=== PATIENT | female | born 1965 | race Caucasian/White ===

== ENCOUNTER 2017-06-20 11:43 | Inpatient (IN) | payer OTHER ==
[~2017-06-20] VITALS: Ht 167.6 cm; Wt 97.1 kg
[2017-06-20 11:46] VITALS: BP 152/59; PULSE 79; RESP 12; TEMP 99.1; O2SAT 99
[2017-06-20 12:01] VITALS: BP 142/76; PULSE 77; RESP 18; TEMP 98.2; O2SAT 95
--- NOTE | 2017-06-20 12:17 | PD ---
HPI Chief Complaint: Fall Time Seen by Provider: 12:01 Travel History International Travel<30 days: No Contact w/Intl Traveler<30days: No Traveled to known affect area: No History of Present Illness HPI 52-year-old female came to the emergency room after she tripped on uneven concrete surface and fell. She landed on her right knee and her left hand. Her drove her to the emergency room. She was unable to stand up but could bear weight on her right leg. She was unable to walk because of severe pain on the knee area. Patient denies hitting her head or losing consciousness. Vital signs are stable. She is not on any blood thinners. The knee is worse in terms of pain than the hand. PFSH Past Medical History Narrative Medical List of her past medical, surgical, social and family history is reviewed from the nursing note. High Cholesterol: Yes Thyroid Disease: Yes (HYPO-THYROID ) Tetanus Vaccination: < 5 Years Influenza Vaccination: No ?: Not Menopausal: Yes Social History Alcohol Use: No Tobacco Use: No Substance Use: No Allergies-Medications (Allergen,Severity, Reaction): Coded Allergies: acetaminophen (Verified Allergy, Severe, Hives, 06/20/17) aspirin (Verified Allergy, Severe, Hives, 06/20/17) caffeine (Verified Allergy, Severe, Hives, 06/20/17) Comments list of her allergies reviewed from the nursing note. Reported Meds & Prescriptions Reported Meds & Active Scripts Active Enoxaparin Inj (Enoxaparin Sodium) 40 Mg/0.4 Ml Syr 40 Mg SQ DAILY 20 Days Oxycodone (Oxycodone HCl) 5 Mg Cap 1-2 Tab PO Q4H PRN Reported Sertraline (Sertraline HCl) 50 Mg Tab 50 Mg PO DAILY Lovastatin 20 Mg Tab 20 Mg PO DAILY Levothyroxine (Levothyroxine Sodium) 25 Mcg Tab 100 Mcg PO DAILY Narrative Medication List of her home medications reviewed from the nursing note Review of Systems Except as stated in HPI: all other systems reviewed are Neg Musculoskeletal: Positive: Limited ROM, Pain (right knee and left hand) Physical Exam Narrative GENERAL: Awake, alert, anxious, moderate distress SKIN: Focused skin assessment warm/dry. HEAD: Atraumatic. Normocephalic. EYES: Pupils equal and round. No scleral icterus. No injection or drainage. ENT: No nasal bleeding or discharge. Mucous membranes pink and moist. NECK: Trachea midline. No JVD. CARDIOVASCULAR: Regular rate and rhythm. No murmur appreciated. RESPIRATORY: No accessory muscle use. Clear to auscultation. Breath sounds equal bilaterally. GASTROINTESTINAL: Abdomen soft, non-tender, nondistended. Hepatic and splenic margins not palpable. MUSCULOSKELETAL: Right patellar swelling with tenderness. Decreased range of motion due to pain. Left fourth and fifth metacarpal swelling and tenderness. No clubbing. No cyanosis. No edema. NEUROLOGICAL: Awake and alert. No obvious cranial nerve deficits. Motor grossly within normal limits. Normal speech. PSYCHIATRIC: Appropriate mood and affect; insight and judgment normal. Data Data Last Documented VS Vital Signs Date Time Temp Pulse Resp B/P (MAP) Pulse Ox O2 Delivery O2 Flow Rate FiO2 06/20/17 12:06 74 18 98 Room Air 06/20/17 12:01 98.2 142/76 (98) Orders Orders Knee, Complete (4vws) (06/20/17 ) Hand, Complete ([id number]) (06/20/17 ) Ketorolac Inj (Toradol Inj) (06/20/17 12:30) Splinting (06/20/17 ) Admit Order (Ed Use Only) (06/20/17 14:00) MDM Medical Decision Making Medical Screen Exam Complete: Yes Emergency Medical Condition: Yes Medical Record Reviewed: Yes Differential Diagnosis Patellar fracture, hematoma of the knee, left hand hematoma, metacarpal fracture Narrative Course 1:33 PM x-ray suggestive of patellar fracture as well as metacarpal fracture. I have ordered for ulnar gutter for the metacarpal fracture. The patellar fracture would require surgery. Awaiting for orthopedics to call back. I also paged hand surgeon. 1:45 PM I discussed the case with Dr. Parker from orthopedics. He wants to operate on the patient. He wants the patient to be nothing by mouth and admitted to medical service for the kneecap. Awaiting for the hand surgeon to call back and the hospitalist to call back. I've explained the injuries as well as the plan to the patient and her and they understand. She has been made nothing by mouth. An ice pack will be given for her knee to her. Procedures EKG Prior to Arrival: No Physician Communication Physician Communication Dr. ParkerDr. Johns Diagnosis Primary Impression: Fall Qualified Codes: W19.XXXA - Unspecified fall, initial encounter Additional Impressions: Fracture of fourth metacarpal bone Qualified Codes: S62.315A - Displaced fracture of base of fourth metacarpal bone, left hand, initial encounter for closed fracture Patellar fracture Qualified Codes: S82.041A - Displaced comminuted fracture of right patella, initial encounter for closed fracture Admitting Information Admitting Physician Requests: Admit Scripts Misc. Devices (Roller Walker) 1 Mis Mis EA .ROUTE NOW, #1 Prov: Wendy Wayne MD, R1 06/22/17 Enoxaparin Inj (Enoxaparin Inj) 40 Mg/0.4 Ml Syr 40 MG SQ DAILY for Blood Clot Prevention for 20 Days, #20 SYRINGE 0 Refills Prov: Emerson Parker MD 06/20/17 Oxycodone (Oxycodone) 5 Mg Cap 1-2 TAB PO Q4H Y for PAIN, #60 CAP 0 Refills Prov: Emerson Parker MD 06/20/17 Moody Jacques MD Jun 20, 2017 12:17
[2017-06-20] MEDS ORDERED: LEVO25TA4 PO ×2 (12:25)
[2017-06-20] MEDS ORDERED: LOVA20TA PO ×2 (12:25)
[2017-06-20] MEDS ORDERED: SERT-132 PO ×2 (12:25)
[2017-06-20] MEDS ORDERED: KETOROLAC TROMETHAMINE 30 MG/ML (IVP) VIAL IV PUSH ONE ×2 (12:30)
--- NOTE | 2017-06-20 13:11 | RADRPT ---
EXAM DATE/TIME: 06/20/2017 12:38 [facility] COMPARISON: No previous studies available for comparison. INDICATIONS : Left hand pain, post fall MEDICAL HISTORY : History of prior hand fractures, 4th and 5th digits SURGICAL HISTORY : None. ENCOUNTER: Initial ACUITY: 1 day PAIN SCORE: 4/10 LOCATION: Left upper extremity FINDINGS: There is an oblique, acute fracture of the base/proximal shaft junction of the fourth metacarpal. A f ew millimeters of medial displacement noted. I don't believe the articular surfaces are involved. No evidence of subluxation. No other acute fractures are demonstrated. There is old, healed fracture apparent of the base of the ring finger proximal phalanx. CONCLUSION: Acute, slightly displaced oblique fracture proximally of the fourth metacarpal, probably [id number] ticular. Rosales Lemus MD on June 20, 2017 at 13:06 Board Certified Radiologist. This report was verified electronically.
--- NOTE | 2017-06-20 13:11 | RADRPT ---
EXAM DATE/TIME: 06/20/2017 12:38 [facility] COMPARISON: No previous studies available for comparison. INDICATIONS : Left hand pain, post fall MEDICAL HISTORY : History of prior hand fractures, 4th and 5th digits SURGICAL HISTORY : None. ENCOUNTER: Initial ACUITY: 1 day PAIN SCORE: 4/10 LOCATION: Left upper extremity FINDINGS: There is an oblique, acute fracture of the base/proximal shaft junction of the fourth metacarpal. A f ew millimeters of medial displacement noted. I don't believe the articular surfaces are involved. No evidence of subluxation. No other acute fractures are demonstrated. There is old, healed fracture apparent of the base of the ring finger proximal phalanx. CONCLUSION: Acute, slightly displaced oblique fracture proximally of the fourth metacarpal, probably [id number]-[id number]-vs ticular. Rosales Lemus MD on June 20, 2017 at 13:06 Board Certified Radiologist. This report was verified electronically.
--- NOTE | 2017-06-20 13:11 | RADRPT ---
EXAM DATE/TIME: 06/20/2017 12:38 [facility] COMPARISON: No previous studies available for comparison. INDICATIONS : Left hand pain, post fall MEDICAL HISTORY : History of prior hand fractures, 4th and 5th digits SURGICAL HISTORY : None. ENCOUNTER: Initial ACUITY: 1 day PAIN SCORE: 4/10 LOCATION: Left upper extremity FINDINGS: There is an oblique, acute fracture of the base/proximal shaft junction of the fourth metacarpal. A f ew millimeters of medial displacement noted. I don't believe the articular surfaces are involved. No evidence of subluxation. No other acute fractures are demonstrated. There is old, healed fracture apparent of the base of the ring finger proximal phalanx. CONCLUSION: Acute, slightly displaced oblique fracture proximally of the fourth metacarpal, probably [id number] ticular. Rosales Lemus MD on June 20, 2017 at 13:06 Board Certified Radiologist. This report was verified electronically.
--- NOTE | 2017-06-20 13:12 | RADRPT ---
EXAM DATE/TIME: 06/20/2017 12:45 [facility] COMPARISON: No previous studies available for comparison. INDICATIONS : Right knee pain, post fall MEDICAL HISTORY : None. SURGICAL HISTORY : None. ENCOUNTER: Initial ACUITY: 1 day PAIN SCORE: 9/10 LOCATION: Right knee FINDINGS: An acute fracture is seen of the patella. The fracture is extremely comminuted but mostly in the mid zone to upper pole. There is as much as 22 mm of separation of fracture fragments. There is marked pr epatellar soft tissue swelling. However, I don't see a significant joint effusion. Other bones of the right knee are intact. CONCLUSION: Very comminuted and considerably displaced/ fracture of the patella. Rosales Lemus MD on June 20, 2017 at 13:09 Board Certified Radiologist. This report was verified electronically.
--- NOTE | 2017-06-20 14:03 | HHI.HP ---
[facility] Service Family Medicine Primary Care Physician Tito Pradhan MD Admission Diagnosis comminuted patellar fracture, metacarpal fracture Diagnoses: International Travel<30 Days: No Contact w/Intl Traveler<30days: No Known Affected Area: No History of Present Illness Patient is a 52 year old female who presents to the ED after she tripped on concrete earlier today and fell. She states she was walking on the sidewalk with her earlier today when she tripped on uneven concrete and fell. She fell forward landing on concrete on her right knee and left hand. She denies landing or injury any other body part. Denies LOC. She currently states her pain is at a 1/10 after getting IV toradol in the ED. Prior to receiving this her pain was at a 10/10. She does report a history of falls about once every 5 years or so. She denies issues with her gait or balance issues. It seems these are mostly due to clumsiness. She does have a history of amblyopia and had surgery on her eyes as a child and she states she had Lasix surgery on her left eye some years ago but she denies issues with her vision that may contribute to her falls. She denies any history of seizures. Denies any focal neuro deficit. Denies feeling any weakness, numbness, or tingling of any extremity prior to the fall. Denies headaches, visual changes, blurry vision, CP, SOB, cough, f/c. Review of Systems Constitutional: DENIES: Fever, Chills Eyes: DENIES: Blurred vision, Diplopia, Eye pain, Vision loss, Double Vision Ears, nose, mouth, throat: DENIES: Tinnitus Respiratory: DENIES: Cough, Wheezing, Sputum production, Shortness of breath Cardiovascular: DENIES: Chest pain, Palpitations, Lower Extremity Edema Gastrointestinal: DENIES: Abdominal pain, Black stools, Bloody stools, Constipation, Diarrhea, Nausea, Vomiting Genitourinary: DENIES: Hematuria, Dysuria Integumentary: DENIES: Rash Neurologic: DENIES: Abnormal gait, Headache, Localized weakness, Seizures, Poor Balance Past Family Social History Past Medical History Hyperlipidemia Hypothyroidism On sertraline for postmenopausal symptoms Past Surgical History Eye surgery for amblyopia as a child Lasix left eye Allergies: Coded Allergies: acetaminophen (Verified Allergy, Severe, Hives, 06/20/17) aspirin (Verified Allergy, Severe, Hives, 06/20/17) caffeine (Verified Allergy, Severe, Hives, 06/20/17) Family History Noncontributory Social History Tobacco: denies Etoh: rarely Lives at home with her Physical Exam Vital Signs Vital Signs Date Time Temp Pulse Resp B/P (MAP) Pulse Ox O2 Delivery O2 Flow Rate FiO2 06/20/17 12:06 74 18 98 Room Air 06/20/17 12:01 98.2 77 18 142/76 (98) 95 06/20/17 11:46 99.1 79 12 152/59 (90) 99 Physical Exam GENERAL: NAD while at rest, significant pain when moving right leg NEURO: Alert. Normal speech. 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 SKIN: Warm and dry. No rashes, bruising, or erythema. Visible edema along dorsal aspect of left hand near 4th metacarpal area of fracture. Right lower extremity is splinted and skin not able to be assessed. HEAD: Normocephalic. Atraumatic. EYES: PERRL. EOMI. No scleral icterus. No injection or drainage. ENT: No nasal drainage. Moist mucous membranes. No oral ulcers or lesions. NECK: Supple, trachea midline. No JVD. CARDIOVASCULAR: Regular rate and rhythm without murmurs, rubs, or gallops. Peripheral pulses 2+ including 2+ posterior tibial pulses bilaterally. Capillary refill < 2 seconds. RESPIRATORY: Breath sounds clear to auscultation and equal bilaterally, without wheezes, rales, or rhonchi. No accessory muscle use. GASTROINTESTINAL: Abdomen soft, nontender, nondistended, normal BS. MUSCULOSKELETAL: No lower extremity edema. Normal range of motion of upper extremities and left leg. Not moving right leg secondary to pain. Moves all toes well. BACK: Nontender without obvious deformity. Imaging Last 72 hours Impressions Knee X-Ray 06/20/17 0000 Signed Impressions: Service Date/Time: Tuesday, June 20, 2017 12:45 - CONCLUSION: Very comminuted and considerably displaced/ fracture of the patella. Rosales Lemus MD Hand X-Ray 06/20/17 0000 Signed Impressions: Service Date/Time: Tuesday, June 20, 2017 12:38 - CONCLUSION: Acute, slightly displaced oblique fracture proximally of the fourth metacarpal, probably [id number]. Rosales Lemus MD [facility] ([facility]3] VTE Risk Assessment Caprini VTE Risk Assessment: No/Low Risk (score <= 1) Caprini Risk Assessment Model Point Value = 1 Point Value = 2 Point Value = 3 Point Value = 5 Age 41-60 Minor surgery BMI > 25 kg/m2 Swollen legs Varicose veins or History of unexplained or recurrent spontaneous Oral contraceptives or hormone replacement Sepsis (< 1 month) Serious lung disease, including pneumonia (< 1 month) Abnormal pulmonary function Acute myocardial infarction Congestive heart failure (< 1 month) History of inflammatory bowel disease Medical patient at bed rest Age 61-74 Arthroscopic surgery Major open surgery (> 45 min) Laparoscopic surgery (> 45 min) Malignancy Confined to bed (> 72 hours) Immobilizing plaster cast Central venous access Age >= 75 History of VTE Family history of VTE Factor V Leiden Prothrombin [id number] Lupus anticoagulant Anticardiolipin antibodies Elevated serum homocysteine Heparin-induced thrombocytopenia Other congenital or acquired thrombophilia Stroke (< 1 month) Elective arthroplasty Hip, pelvis, or leg fracture Acute spinal cord injury (< 1 month) Prophylaxis Regimen Total Risk Factor Score Risk Level Prophylaxis Regimen 0-1 Low Early ambulation 2 Moderate Order ONE of the following: *Sequential Compression Device (SCD) *Heparin 5000 units SQ BID 3-4 Higher Order ONE of the following medications: *Heparin 5000 units SQ TID *Enoxaparin/Lovenox 40 mg SQ daily (WT < 150 kg, CrCl > 30 mL/min) *Enoxaparin/Lovenox 30 mg SQ daily (WT < 150 kg, CrCl > 10-29 mL/min) *Enoxaparin/Lovenox 30 mg SQ BID (WT < 150 kg, CrCl > 30 mL/min) AND/OR *Sequential Compression Device (SCD) 5 or more Highest Order ONE of the following medications: *Heparin 5000 units SQ TID (Preferred with Epidurals) *Enoxaparin/Lovenox 40 mg SQ daily (WT < 150 kg, CrCl > 30 mL/min) *Enoxaparin/Lovenox 30 mg SQ daily (WT < 150 kg, CrCl > 10-29 mL/min) *Enoxaparin/Lovenox 30 mg SQ BID (WT < 150 kg, CrCl > 30 mL/min) AND *Sequential Compression Device (SCD) Assessment and Plan Assessment and Plan 52 year old female being admitted with a very comminuted and displaced right patellar fracture following a mechanical fall. Orthopedic surgery consulted for recommendations and possible surgical intervention. Code Status Full code Discussed Condition With Dr. Albrecht Problem List: (1) Patellar fracture ICD Codes: S82.009A - Unspecified fracture of unspecified patella, initial encounter for closed fracture Status: Acute Plan: - X-ray of her right knee shows very comminuted and considerably displaced/ fracture of the patella - Orthopedic surgery consulted, Dr. Parker aware - Morphine as needed for pain - s/p splinting in the ED - Will keep NPO until orthopedic surgery evaluation - NS at maintenance rate - Will need physical therapy (2) Fracture of fourth metacarpal bone ICD Codes: S62.308A - Unspecified fracture of other metacarpal bone, initial encounter for closed fracture Status: Acute Plan: - X-ray of left hand showing an acute, slightly displaced oblique fracture approximately of the fourth metacarpal - To be splinted in the ED - Will consult hand surgery, anticipate nonoperative management but would appreciate recommendations from hand surgery and possible need of outpatient follow-up (3) Nutrition, metabolism, and development symptoms ICD Codes: R63.8 - Other symptoms and signs concerning food and fluid intake Plan: Fluids: NS at maintenance rate Electrolytes: WNL, continue to monitor Nutrition: NPO DVT ppx: b/l SCDs, holding chemical anticoagulation in anticipation of possible orthopedic surgery Physician Certification 2 Midnight Certification Type: Admission for Inpatient Services Order for Inpatient Services The services are ordered in accordance with Medicare regulations or non- Medicare payer requirements, as applicable. In the case of services not specified as inpatient-only, they are appropriately provided as inpatient services in accordance with the 2-midnight benchmark. Estimated LOS (days): 2 days is the estimated time the patient will need to remain in the hospital, assuming treatment plan goals are met and no additional complications. Post-Hospital Plan: Home Health Problem Qualifiers (1) Patellar fracture: Qualified Codes: S82.041A - Displaced comminuted fracture of right patella, initial encounter for closed fracture (2) Fracture of fourth metacarpal bone: Qualified Codes: S62.315A - Displaced fracture of base of fourth metacarpal bone, left hand, initial encounter for closed fracture Jalen Alford MD R2 Jun 20, 2017 14:03
[2017-06-20] MEDS ORDERED: SODIUM CHLOR 0.9% 1000 ML INJ 1,000 ML IV SCH ×2 (14:04)
[2017-06-20] MEDS ORDERED: SODIUM CHLORIDE 0.9% FLUSH 10 ML FLUSH IV FLUSH SCH ×2 (14:15)
[2017-06-20] MEDS ORDERED: SODIUM CHLORIDE 0.9% FLUSH 10 ML FLUSH IV FLUSH PRN ×2 (14:15)
[2017-06-20] MEDS ORDERED: NALOXONE HCL 0.4 MG/ML AMP IV PUSH PRN ×4 (14:15→19:00)
[2017-06-20 14:26] VITALS: O2SAT 98
[2017-06-20] MEDS ORDERED: MORPHINE SULFATE 4 MG/ML INJ IV PUSH PRN ×6 (14:45→19:00)
[2017-06-20 15:28] LABS: AUTOMATED NEUTROPHIL # 5.6 TH/MM3 (1.8-7.7); BASOPHIL % 0.6 % (0.0-2.0); EOSINOPHIL # 0.2 TH/MM3 (0-0.4); EOSINOPHIL % 2.8 % (0.0-4.0); HEMATOCRIT 42.2 % (35.0-46.0); HEMOGLOBIN 14.3 GM/DL (11.6-15.3); LYMPH % 20.5 % (9.0-44.0); LYMPHOCYTE # 1.6 TH/MM3 (1.0-4.8); MEAN CELL VOLUME 85.2 FL (80.0-100.0); MEAN CORPUSCULAR HEMOGLOBIN 28.9 PG (27.0-34.0); MEAN CORPUSCULAR HGB CONC 33.9 % (32.0-36.0); MEAN PLATELET VOLUME 9.5 FL (7.0-11.0); MONO % 5.8 % (0.0-8.0); MONOCYTE # 0.5 TH/MM3 (0-0.9); NEUT % 70.3 % (16.0-70.0); PLATELET COUNT 210 TH/MM3 (150-450); RED BLOOD COUNT 4.95 MIL/MM3 (4.00-5.30); RED CELL DISTRIBUTION WIDTH 13.2 % (11.6-17.2)
[2017-06-20 15:35] LABS: PROTHROMBIN TIME - PATIENT 10.6 SEC (9.8-11.6)
[2017-06-20 15:49] LABS: BICARBONATE 25.6 MEQ/L (21.0-32.0); CALCIUM 8.8 MG/DL (8.5-10.1); CREATININE 0.87 MG/DL (0.50-1.00)
[2017-06-20 16:00] VITALS: BP 157/79; PULSE 68; RESP 18; TEMP 97.1; O2SAT 97
[2017-06-20] MEDS ORDERED: VANCOMYCIN HCL 1000 MG VIAL ONE ×2 (17:20)
[2017-06-20] MEDS ORDERED: GENTAMICIN SULFATE 80 MG/2 ML VIAL ONE ×2 (17:20)
[2017-06-20] MEDS ORDERED: ceFAZolin INJ 1,000 MG VIAL ONE ×2 (17:20)
--- NOTE | 2017-06-20 17:24 | MB ---
cc: YADIRA WHITMAN DATE OF CONSULTATION 06/20/17 REASON FOR CONSULTATION Right knee patella fracture and left hand metacarpal fracture. HISTORY OF PRESENT ILLNESS The patient is a 52-year-old female who presented to the emergency room after she had tripped on some concrete earlier and she fell onto the right knee. She noticed immediate pain and she was unable to ambulate well after this. She was found to have a displaced patella fracture. The emergency room physician had contacted me. We discussed the case. The patient was admitted to the hospital. 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 She denies any new numbness or tingling radiating down the leg. She does complain of pain about the left hand. She was found to have a fourth metacarpal fracture. This was splinted in the emergency room. She is not describing any symptoms of numbness or tingling in these areas. PAST MEDICAL HISTORY 1. hyperlipidemia, 2. hypothyroidism ALLERGIES ACETAMINOPHEN ASPIRIN CAFFEINE (reactions are hives) FAMILY HISTORY Noncontributory. SOCIAL HISTORY History is negative. 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 Her is at the bedside. PHYSICAL EXAMINATION VITAL SIGNS: The patient's temperature is 98.2, pulse 74, respirations 18, blood pressure 142/76. GENERAL: The patient is awake, alert and oriented x3. She has normal affect, insight and judgment. She has no acute distress. She is obese. HEENT: Head is atraumatic. Oropharynx is moist. NECK: Supple. Extraocular movements are intact. HEART: Regular rate and rhythm. LUNGS: Clear to auscultation bilaterally. ABDOMEN: soft, nontender, nondistended. BACK: No CVA tenderness. EXTREMITIES: Bilateral upper extremity shows good range of motion of the shoulders and elbows. The left hand is splinted. She has normal sensation about the fourth and fifth fingers. Right wrist has normal alignment. The right lower extremity is currently splinted, so I cannot assess the skin. The left leg has no abrasions noted, She actually moves the toes well on both feet. She has 2+ posterior tibialis pulse bilaterally. Left knee has no effusion. LABORATORY FINDINGS White cell count of 8.0, hematocrit 42.2, platelets of 210 coagulations INR is 1.0. Chemistry shows creatinine of 0.87, glucose 131. IMAGING STUDIES The right knee - Agree with the report showing a very comminuted considerably displaced fracture of the right patella. Reviewed the report showing acute minimal displaced fracture of the proximal fourth metacarpal which is likely extra articular IMPRESSION 1. Right knee highly comminuted displaced patella fracture. 2. Left hand fourth metacarpal shaft fracture, mildly displaced DECISION MAKING As for the hand fracture, I recommend nonoperative management given the current position of the fracture fragments. This will need to be followed closely to confirm that there is no displacement. This will lead to some problems because she will have difficulty as far as using a walker. 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 As far as the right patella is concerned, it is a very difficult situation. Nonoperative management would likely lead to significant long-term dysfunction of the knee including the inability to extend the knee and have very little strength for extension of the knee, likely would have severe pain and lead to debilitating arthritic change around the patellofemoral joint. Even with successful surgical management, realign the articular surface which may ultimately be very difficult given the highly comminuted nature. There is still significant risks of developing post traumatic arthritis or even having failure of the fixation such as distraction pulling a part of the fracture fragments or developing a significant stiffness of the knee which could require further surgical management such as manipulation under anesthesia or arthroscopic release of adhesions. The patient may end up developing a significant traumatic arthritis which could also require arthroplasty. She understands the serious nature of this. We talked about the postoperative rehabilitation in detail. We talked about the risks and benefits of surgery in detail. She does wish to move forward with surgical management. She understands the risks include but are not limited to injury to nerves, blood vessels, bleeding, infection, failure of hardware, need for reoperation, continued pain, loss of range of motion of the associated joints, DVT, pulmonary embolus, pneumonia and . All questions have been answered. The patient wished to move forward with surgical management. MD ESTHELA De La Cruz/ /4:24 PM /5:11 PM
[2017-06-20] MEDS ORDERED: BUPIVACAINE/EPINEPHRINE 0.5% 50 ML VIAL ONE ×2 (17:41)
[2017-06-20] MEDS ORDERED: ENOX40IN SQ ×2 (18:55)
[2017-06-20] MEDS ORDERED: OXYC1CAP PO ×2 (18:55)
[2017-06-20] MEDS ORDERED: SODIUM CHLORIDE 0.9% FLUSH 5 ML FLUSH IVF PRN ×2 (19:00)
[2017-06-20] MEDS ORDERED: MISCELLANEOUS PHARMACY INFORMATION XX ONE ×2 (19:00)
[2017-06-20] MEDS ORDERED: MAGNESIUM HYDROXIDE SUSP 30 ML CUP PO PRN ×2 (19:00)
[2017-06-20] MEDS ORDERED: ONDANSETRON HCL 4 MG/2 ML VIAL IVP PRN ×2 (19:00)
[2017-06-20] MEDS ORDERED: MISCELLANEOUS NURSING INFORMATION XX PRN ×2 (19:00)
[2017-06-20] MEDS ORDERED: Post-op Orders (for Pharmacy) MISC XX ONE ×2 (19:00)
[2017-06-20] MEDS ORDERED: diphenhydrAMINE HCL 25 MG CAP PO PRN ×2 (19:00)
--- NOTE | 2017-06-20 19:02 | PD.OP ---
cc: Emerson Parker MD Operative Report Date of Surgery: Jun 20, 2017 Preoperative Diagnosis: Right knee comminuted patella fracture. Left hand fourth metacarpal shaft fracture. Postoperative Diagnosis: Same Procedure: Left knee open reduction and internal fixation of patellar fracture Anesthesia: Gen. Surgeon: Emerson Parker Dental Technologist(s): DION Agustin The surgical procedure was assisted by my Advanced Registered Nurse Practitioner. My OVERHEAD CLEANER MAINTAINER presence was necessary throughout this case for the manipulation and positioning of the surgical extremity. My OVERHEAD CLEANER MAINTAINER was assisting me throughout the duration of this procedure. The skill set of an Advance Registered Nurse Practitioner was medically necessary to complete this procedure. During the surgical case, the surgical technician was working at the back table and the Advance Registered Nurse Practitioner was directly assisting me. Operation and Findings: Tourniquet time: 43 minutes at 250 mmHg of pressure Estimated blood loss: 200 cc The patient received intravenous vancomycin and Ancef. After the appropriate anesthesia was administered, the patient's leg was prepped and draped in the usual sterile fashion. We made a standard incision on the anterior aspect of the knee. We identified a displaced transverse patella fracture. We evacuated the hematoma. At this point we decided to inflate the tourniquet. We curetted the edges to identify both the proximal and distal fragments. The visualized portion of the trochlea was unremarkable. The patella was very comminuted. Proximally there were essentially 2 fairly large fragments. Then distally there was 1 fairly large fragment and this fragment had a coronal split anteriorly and posteriorly. Then on the medial and lateral aspects of the patella there were small areas of comminution which part entered did joint surface and part was on the dorsal surface. The comminution that was medial and lateral was excised as these areas were more likely to create irritation as they could not be adequately fixated into anatomic position. We started with reducing the proximal 2 fragments. The most lateral portion of these fragments was of a large enough size to hold wires. Therefore we then anatomically reduce this area. We were able to place a finger on the undersurface to feel the articular cartilage and identified that this was anatomic. We placed 2 threaded K wires from lateral to medial. Both of these had excellent purchase and fixated the fragment extremely well. We were able to again feel the undersurface of the cartilage throughout this area and there was no penetration of the K wires into the joint. We used fluoroscopic imaging as well. We anatomically reduced the proximal and distal fracture fragments and provisionally held the fracture with reduction clamps. The comminution on the dorsal aspect was provisionally held as well. We verified anatomic alignment both on palpation of the articular surface and also on fluoroscopy. We then placed 2 wires from distal to proximal. We used these wires to place 2 individual 4.0 Synthes cannulated stainless steel partially-threaded screws. Both screws had very good purchase. We then placed 18-gauge wire through the base of the first screw which was then crossed and brought down to the bottom of the second screw. We threaded the wire through the second screw brining the wire to the proximal aspect of the knee. We then create a crisscross pattern. We twisted and tightened both the medial and lateral sides of the wire in usual fashion with excellent compression. The knee had full range of motion with no displacement of the fracture noted. We took final fluoroscopic images. The tourniquet was released. Hemostasis was achieved and the knee was thoroughly irrigated. The medial retinaculum was found to have tears. We augmented the repair by using interrupted [id number] sutures. This was completed with 1-0 Vicryl. Skin was closed with 2-0 Vicryl followed by quoc. The postoperative plan is for 50% to the extremity with a canvas knee splint on at all times. Additionally we will provide Lovenox for DVT prophylaxis. Emerson Parker MD Jun 20, 2017 19:02
--- NOTE | 2017-06-20 19:02 | PD.OP ---
cc: Emerson Parker MD Operative Report Date of Surgery: Jun 20, 2017 Preoperative Diagnosis: Right knee comminuted patella fracture. Left hand fourth metacarpal shaft fracture. Postoperative Diagnosis: Same Procedure: Left knee open reduction and internal fixation of patellar fracture Anesthesia: Gen. Surgeon: Emerson Parker Material Requirements Worker(s): DION Agustin The surgical procedure was assisted by my Advanced Registered Nurse Practitioner. My CEO AND FOUNDER presence was necessary throughout this case for the manipulation and positioning of the surgical extremity. My CEO AND FOUNDER was assisting me throughout the duration of this procedure. The skill set of an Advance Registered Nurse Practitioner was medically necessary to complete this procedure. During the surgical case, the upstream biomanufacturing technician was working at the back table and the Advance Registered Nurse Practitioner was directly assisting me. Operation and Findings: Tourniquet time: 43 minutes at 250 mmHg of pressure Estimated blood loss: 200 cc The patient received intravenous vancomycin and Ancef. After the appropriate anesthesia was administered, the patient's leg was prepped and draped in the usual sterile fashion. We made a standard incision on the anterior aspect of the knee. We identified a displaced transverse patella fracture. We evacuated the hematoma. At this point we decided to inflate the tourniquet. We curetted the edges to identify both the proximal and distal fragments. The visualized portion of the trochlea was unremarkable. The patella was very comminuted. Proximally there were essentially 2 fairly large fragments. Then distally there was 1 fairly large fragment and this fragment had a coronal split anteriorly and posteriorly. Then on the medial and lateral aspects of the patella there were small areas of comminution which part entered did joint surface and part was on the dorsal surface. The comminution that was medial and lateral was excised as these areas were more likely to create irritation as they could not be adequately fixated into anatomic position. We started with reducing the proximal 2 fragments. The most lateral portion of these fragments was of a large enough size to hold wires. Therefore we then anatomically reduce this area. We were able to place a finger on the undersurface to feel the articular cartilage and identified that this was anatomic. We placed 2 threaded K wires from lateral to medial. Both of these had excellent purchase and fixated the fragment extremely well. We were able to again feel the undersurface of the cartilage throughout this area and there was no penetration of the K wires into the joint. We used fluoroscopic imaging as well. We anatomically reduced the proximal and distal fracture fragments and provisionally held the fracture with reduction clamps. The comminution on the dorsal aspect was provisionally held as well. We verified anatomic alignment both on palpation of the articular surface and also on fluoroscopy. We then placed 2 wires from distal to proximal. We used these wires to place 2 individual 4.0 Synthes cannulated stainless steel partially-threaded screws. Both screws had very good purchase. We then placed 18-gauge wire through the base of the first screw which was then crossed and brought down to the bottom of the second screw. We threaded the wire through the second screw brining the wire to the proximal aspect of the knee. We then create a crisscross pattern. We twisted and tightened both the medial and lateral sides of the wire in usual fashion with excellent compression. The knee had full range of motion with no displacement of the fracture noted. We took final fluoroscopic images. The tourniquet was released. Hemostasis was achieved and the knee was thoroughly irrigated. The medial retinaculum was found to have tears. We augmented the repair by using interrupted semhih-im-ahqlv sutures. This was completed with 1-0 Vicryl. Skin was closed with 2-0 Vicryl followed by quoc. The postoperative plan is for 50% to the extremity with a canvas knee splint on at all times. Additionally we will provide Lovenox for DVT prophylaxis. Emerson Parker MD Jun 20, 2017 19:02
--- NOTE | 2017-06-20 19:02 | PD.OP ---
cc: Emerson Parker MD Operative Report Date of Surgery: Jun 20, 2017 Preoperative Diagnosis: Right knee comminuted patella fracture. Left hand fourth metacarpal shaft fracture. Postoperative Diagnosis: Same Procedure: Left knee open reduction and internal fixation of patellar fracture Anesthesia: Gen. Surgeon: Emerson Parker Django Developer(s): DION Agustin The surgical procedure was assisted by my Advanced Registered Nurse Practitioner. My HEALTHCARE ADMINISTRATOR presence was necessary throughout this case for the manipulation and positioning of the surgical extremity. My HEALTHCARE ADMINISTRATOR was assisting me throughout the duration of this procedure. The skill set of an Advance Registered Nurse Practitioner was medically necessary to complete this procedure. During the surgical case, the surgical nurse practitioner was working at the back table and the Advance Registered Nurse Practitioner was directly assisting me. Operation and Findings: Tourniquet time: 43 minutes at 250 mmHg of pressure Estimated blood loss: 200 cc The patient received intravenous vancomycin and Ancef. After the appropriate anesthesia was administered, the patient's leg was prepped and draped in the usual sterile fashion. We made a standard incision on the anterior aspect of the knee. We identified a displaced transverse patella fracture. We evacuated the hematoma. At this point we decided to inflate the tourniquet. We curetted the edges to identify both the proximal and distal fragments. The visualized portion of the trochlea was unremarkable. The patella was very comminuted. Proximally there were essentially 2 fairly large fragments. Then distally there was 1 fairly large fragment and this fragment had a coronal split anteriorly and posteriorly. Then on the medial and lateral aspects of the patella there were small areas of comminution which part entered did joint surface and part was on the dorsal surface. The comminution that was medial and lateral was excised as these areas were more likely to create irritation as they could not be adequately fixated into anatomic position. We started with reducing the proximal 2 fragments. The most lateral portion of these fragments was of a large enough size to hold wires. Therefore we then anatomically reduce this area. We were able to place a finger on the undersurface to feel the articular cartilage and identified that this was anatomic. We placed 2 threaded K wires from lateral to medial. Both of these had excellent purchase and fixated the fragment extremely well. We were able to again feel the undersurface of the cartilage throughout this area and there was no penetration of the K wires into the joint. We used fluoroscopic imaging as well. We anatomically reduced the proximal and distal fracture fragments and provisionally held the fracture with reduction clamps. The comminution on the dorsal aspect was provisionally held as well. We verified anatomic alignment both on palpation of the articular surface and also on fluoroscopy. We then placed 2 wires from distal to proximal. We used these wires to place 2 individual 4.0 Synthes cannulated stainless steel partially-threaded screws. Both screws had very good purchase. We then placed 18-gauge wire through the base of the first screw which was then crossed and brought down to the bottom of the second screw. We threaded the wire through the second screw brining the wire to the proximal aspect of the knee. We then create a crisscross pattern. We twisted and tightened both the medial and lateral sides of the wire in usual fashion with excellent compression. The knee had full range of motion with no displacement of the fracture noted. We took final fluoroscopic images. The tourniquet was released. Hemostasis was achieved and the knee was thoroughly irrigated. The medial retinaculum was found to have tears. We augmented the repair by using interrupted [id number]-ga-kwnrs sutures. This was completed with 1-0 Vicryl. Skin was closed with 2-0 Vicryl followed by quoc. The postoperative plan is for 50% to the extremity with a canvas knee splint on at all times. Additionally we will provide Lovenox for DVT prophylaxis. Emerson Parker MD Jun 20, 2017 19:02
[2017-06-20] MEDS ORDERED: MORPHINE SULFATE 8 MG/ML INJ ONE ×2 (19:24)
[2017-06-20] MEDS: DEXT 5%-NACL 0.45% 1000 ML INJ 1,000 ML IV SCH ×2 (19:30)
[2017-06-20] MEDS ORDERED: DO NOT ADM ANY ANTICOAGULANT DRUGS PRN ×2 (19:30)
[2017-06-20 20:01] VITALS: BP 136/62; PULSE 78; RESP 16; TEMP 98.2; O2SAT 95
[2017-06-20] MEDS: DOCUSATE SODIUM 50 MG/SENNA 8.6 MG TAB PO SCH ×2 (20:14)
[2017-06-20] MEDS: SODIUM CHLORIDE 0.9% FLUSH 5 ML FLUSH IVF SCH ×2 (20:14)
--- NOTE | 2017-06-20 21:54 | RADRPT ---
EXAM DATE/TIME: 06/20/2017 18:34 [facility] COMPARISON: KNEE RIGHT COMPLETE (4VWS), June 20, 2017, 12:45. INDICATIONS : Patella fracture- ORIF. MEDICAL HISTORY : None. SURGICAL HISTORY : None. ENCOUNTER: Initial ACUITY: 1 day PAIN SCORE: Non-responsive. LOCATION: Right Patella. FINDINGS: 3 spot intraoperative fluoroscopic views of the right knee demonstrate cerclage wire and screw fixati on across the comminuted patellar fracture with excellent alignment of the fracture fragments. CONCLUSION: Operative fixation comminuted patellar fracture. Guzman Reid MD on June 20, 2017 at 21:51 Board Certified Radiologist. This report was verified electronically.
[2017-06-20 23:45] VITALS: BP 106/58; PULSE 74; RESP 16; TEMP 97.3; O2SAT 93
[2017-06-21] VITALS (7 sets, daily range): BP systolic 99–119; BP diastolic 51–68; PULSE 65–79; RESP 16–18; TEMP 96.5–97.6; O2SAT 92–98
[2017-06-21 05:00] LABS: AUTOMATED NEUTROPHIL # 10.9 TH/MM3 (1.8-7.7); BASOPHIL % 0.3 % (0.0-2.0); HEMATOCRIT 37.5 % (35.0-46.0); HEMOGLOBIN 12.5 GM/DL (11.6-15.3); LYMPH % 7.5 % (9.0-44.0); LYMPHOCYTE # 0.9 TH/MM3 (1.0-4.8); MEAN CELL VOLUME 85.5 FL (80.0-100.0); MEAN CORPUSCULAR HEMOGLOBIN 28.6 PG (27.0-34.0); MEAN CORPUSCULAR HGB CONC 33.5 % (32.0-36.0); MEAN PLATELET VOLUME 8.3 FL (7.0-11.0); MONO % 3.2 % (0.0-8.0); MONOCYTE # 0.4 TH/MM3 (0-0.9); PLATELET COUNT 197 TH/MM3 (150-450); RED BLOOD COUNT 4.38 MIL/MM3 (4.00-5.30); RED CELL DISTRIBUTION WIDTH 12.8 % (11.6-17.2); WHITE BLOOD COUNT 12.2 TH/MM3 (4.0-11.0)
[2017-06-21] MEDS: DEXT 5%-NACL 0.45% 1000 ML INJ 1,000 ML IV SCH ×6 (05:17→21:28)
--- NOTE | 2017-06-21 07:11 | MB ---
cc: ALIS GASCA DATE OF CONSULTATION: 06/20/2017 REASON FOR CONSULTATION: Left fourth metacarpal fracture. HISTORY OF PRESENT ILLNESS Elida King is a pleasant 52 year-old right-hand dominant male who states that she was walking today at an art festival when she tripped on the sidewalk and fell injuring her right knee and left hand. 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 The patient underwent surgery on her right knee today and I am asked to evaluate her left hand. She reports mild pain and swelling over the left hand. She is in a splint. She denies any paresthesias. The patient denies any history of osteoporosis or osteopenia. PAST MEDICAL HISTORY: 1. History of hyperlipidemia. 2. Hyperthyroidism PAST SURGICAL HISTORY Eye surgery. Right knee surgery. ALLERGIES ACETAMINOPHEN, ASPIRIN, CAFFEINE SOCIAL HISTORY Denies tobacco, alcohol or drug use. 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 PHYSICAL EXAMINATION Vital signs: Stable. The patient is alert and oriented. Splint in place over the left hand. Splint removed. No lacerations or abrasions. Mild tenderness in the base of the fourth metacarpal. Some malrotation noted over the left fourth finger but the patient again states this is old from the prior proximal phalanx fracture. Function intact of FDS and FDP. Sensation intact in the median ulnar distribution. 2+ radial pulse. IMAGING STUDIES X-ray of the left hand shows a closed nondisplaced fracture at the base of the fourth metacarpal. Also evidence of prior slight angulation of a healed left fourth proximal phalanx fracture. ASSESSMENT/PLAN A 52 year-old female with closed nondisplaced fracture of the left fourth metacarpal base. At this time the patient was replaced into a well-padded ulnar gutter splint by the lead medical technologist. She should be non-weightbearing on the left hand. I will see her in the office in 1-2 weeks for custom splint and/or she will follow up with her hand surgeon in [place]. The malrotation was reviewed with the patient and again she states this is old from the prior fracture approximately 3 years ago. We also discussed with the patient she may need to follow up with her PCP for testing for osteopenia and osteoporosis. MD ARIANA Antoine/ZAHRA /12:43 AM /7:45 AM MATT
--- NOTE | 2017-06-21 07:11 | MB ---
cc: ALIS GASCA DATE OF CONSULTATION: 06/20/2017 REASON FOR CONSULTATION: Left fourth metacarpal fracture. HISTORY OF PRESENT ILLNESS Elida King is a pleasant 52 year-old right-hand dominant male who states that she was walking today at an art festival when she tripped on the sidewalk and fell injuring her right knee and left hand. 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 The patient underwent surgery on her right knee today and I am asked to evaluate her left hand. She reports mild pain and swelling over the left hand. She is in a splint. She denies any paresthesias. The patient denies any history of osteoporosis or osteopenia. PAST MEDICAL HISTORY: 1. History of hyperlipidemia. 2. Hyperthyroidism PAST SURGICAL HISTORY Eye surgery. Right knee surgery. ALLERGIES ACETAMINOPHEN, ASPIRIN, CAFFEINE SOCIAL HISTORY Denies tobacco, alcohol or drug use. 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 PHYSICAL EXAMINATION Vital signs: Stable. The patient is alert and oriented. Splint in place over the left hand. Splint removed. No lacerations or abrasions. Mild tenderness in the base of the fourth metacarpal. Some malrotation noted over the left fourth finger but the patient again states this is old from the prior proximal phalanx fracture. Function intact of FDS and FDP. Sensation intact in the median ulnar distribution. 2+ radial pulse. IMAGING STUDIES X-ray of the left hand shows a closed nondisplaced fracture at the base of the fourth metacarpal. Also evidence of prior slight angulation of a healed left fourth proximal phalanx fracture. ASSESSMENT/PLAN A 52 year-old female with closed nondisplaced fracture of the left fourth metacarpal base. At this time the patient was replaced into a well-padded ulnar gutter splint by the orthopedic specialist. She should be non-weightbearing on the left hand. I will see her in the office in 1-2 weeks for custom splint and/or she will follow up with her hand surgeon in [place]. The malrotation was reviewed with the patient and again she states this is old from the prior fracture approximately 3 years ago. We also discussed with the patient she may need to follow up with her PCP for testing for osteopenia and osteoporosis. MD ARIANA Antoine/ZAHRA /12:43 AM /7:45 AM MATT
--- NOTE | 2017-06-21 07:11 | MB ---
cc: ALIS GASCA DATE OF CONSULTATION: 06/20/2017 REASON FOR CONSULTATION: Left fourth metacarpal fracture. HISTORY OF PRESENT ILLNESS Elida King is a pleasant 52 year-old right-hand dominant male who states that she was walking today at an art festival when she tripped on the sidewalk and fell injuring her right knee and left hand. 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 The patient underwent surgery on her right knee today and I am asked to evaluate her left hand. She reports mild pain and swelling over the left hand. She is in a splint. She denies any paresthesias. The patient denies any history of osteoporosis or osteopenia. PAST MEDICAL HISTORY: 1. History of hyperlipidemia. 2. Hyperthyroidism PAST SURGICAL HISTORY Eye surgery. Right knee surgery. ALLERGIES ACETAMINOPHEN, ASPIRIN, CAFFEINE SOCIAL HISTORY Denies tobacco, alcohol or drug use. 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 PHYSICAL EXAMINATION Vital signs: Stable. The patient is alert and oriented. Splint in place over the left hand. Splint removed. No lacerations or abrasions. Mild tenderness in the base of the fourth metacarpal. Some malrotation noted over the left fourth finger but the patient again states this is old from the prior proximal phalanx fracture. Function intact of FDS and FDP. Sensation intact in the median ulnar distribution. 2+ radial pulse. IMAGING STUDIES X-ray of the left hand shows a closed nondisplaced fracture at the base of the fourth metacarpal. Also evidence of prior slight angulation of a healed left fourth proximal phalanx fracture. ASSESSMENT/PLAN A 52 year-old female with closed nondisplaced fracture of the left fourth metacarpal base. At this time the patient was replaced into a well-padded ulnar gutter splint by the invisible braces orthodontist. She should be non-weightbearing on the left hand. I will see her in the office in 1-2 weeks for custom splint and/or she will follow up with her hand surgeon in [place]. The malrotation was reviewed with the patient and again she states this is old from the prior fracture approximately 3 years ago. We also discussed with the patient she may need to follow up with her PCP for testing for osteopenia and osteoporosis. MD ARIANA Antoine/ZAHRA /12:43 AM /7:45 AM MATT
[2017-06-21] MEDS: MULTIVITAMINS/MINERALS THERAPEUTIC TAB PO SCH ×2 (08:13)
[2017-06-21] MEDS: DOCUSATE SODIUM 50 MG/SENNA 8.6 MG TAB PO SCH ×6 (08:14→19:36)
[2017-06-21] MEDS: SODIUM CHLORIDE 0.9% FLUSH 5 ML FLUSH IVF SCH ×4 (08:16→19:36)
--- NOTE | 2017-06-21 08:42 | HHI.HP ---
[facility] Service Family Medicine Primary Care Physician Tito Pradhan MD Admission Diagnosis comminuted patellar fracture, metacarpal fracture Diagnoses: (1) Patellar fracture Diagnosis: Principal (2) Fracture of fourth metacarpal bone Diagnosis: Principal (3) Nutrition, metabolism, and development symptoms Diagnosis: Principal International Travel<30 Days: No Contact w/Intl Traveler<30days: No Known Affected Area: No History of Present Illness Ms King is a 52 year old female who presented to the ED after she tripped on concrete fell. She states she was walking on the sidewalk with her when she tripped on uneven concrete and fell. She fell forward landing on concrete on her right knee and left hand. She denies landing or injury any other body part. Denies LOC. She currently states her pain is at a good level. Prior to receiving this her pain was at a 10/10. She does report a history of falls about once every 5 years or so. She denies issues with her gait or balance issues. It seems these are mostly due to clumsiness. She does have a history of amblyopia and had surgery on her eyes as a child and she states she had Lasix surgery on her left eye some years ago but she denies issues with her vision that may contribute to her falls. She denies any history of seizures. Denies any focal neuro deficit. Denies feeling any weakness, numbness, or tingling of any extremity prior to the fall. Denies headaches, visual changes, blurry vision, CP, SOB, cough, f/c. She did well with surgery and needs no operation for her hand. We discussed lovenox and PT for her walking and hand as she will need these at home. She is interested in going home as soon as possible. She has no other complaints today. Review of Systems Musculoskeletal: COMPLAINS OF: Muscle aches, Stiffness, Joint Swelling Other Constitutional: DENIES: Fever, Chills Eyes: DENIES: Blurred vision, Diplopia, Eye pain, Vision loss, Double Vision Ears, nose, mouth, throat: DENIES: Tinnitus Respiratory: DENIES: Cough, Wheezing, Sputum production, Shortness of breath Cardiovascular: DENIES: Chest pain, Palpitations, Lower Extremity Edema Gastrointestinal: DENIES: Abdominal pain, Black stools, Bloody stools, Constipation, Diarrhea, Nausea, Vomiting Genitourinary: DENIES: Hematuria, Dysuria Integumentary: DENIES: Rash Neurologic: DENIES: Abnormal gait, Headache, Localized weakness, Seizures, Poor Balance Past Family Social History Past Medical History Hyperlipidemia Hypothyroidism On sertraline for postmenopausal symptoms Past Surgical History Eye surgery for amblyopia as a child Lasic for left eye Allergies: Coded Allergies: acetaminophen (Verified Allergy, Severe, Hives, 06/20/17) aspirin (Verified Allergy, Severe, Hives, 06/20/17) caffeine (Verified Allergy, Severe, Hives, 06/20/17) Family History Father- DM and [place] Mother -Lewy body dementia Sister- blood clotting history and blood clots after repair of septum nose Social History Tobacco: denies Etoh: rarely Lives at home with her Physical Exam Vital Signs Vital Signs Date Time Temp Pulse Resp B/P (MAP) Pulse Ox O2 Delivery O2 Flow Rate FiO2 06/21/17 08:00 96.6 70 17 118/68 (85) 97 06/21/17 03:25 96.5 65 16 99/51 (67) 95 06/20/17 23:45 97.3 74 16 106/58 (74) 93 06/20/17 20:01 98.2 78 16 136/62 (86) 95 06/20/17 19:45 88 16 138/71 (93) 99 Nasal Cannula 2 06/20/17 19:30 83 16 140/65 (90) 97 Nasal Cannula 2 06/20/17 19:11 98.3 85 10 135/65 (88) 97 Nasal Cannula 2 06/20/17 16:26 06/20/17 16:00 97.1 68 18 157/79 (105) 97 06/20/17 14:26 98 21 06/20/17 12:06 74 18 98 Room Air 06/20/17 12:01 98.2 77 18 142/76 (98) 95 06/20/17 11:46 99.1 79 12 152/59 (90) 99 Physical Exam GENERAL: NAD while at rest, less pain when moving right leg than on admission NEURO: Alert. Normal speech. patient navigator grossly intact. SKIN: Warm and dry. No rashes, bruising, or erythema. Visible edema along dorsal aspect of left hand near 4th metacarpal area of fracture initially. now bandaged. Right lower extremity is bandaged as well and skin not able to be assessed. HEAD: Normocephalic. Atraumatic. EYES: PERRL. EOMI. No scleral icterus. No injection or drainage. ENT: No nasal drainage. Moist mucous membranes. No oral ulcers or lesions. NECK: Supple, trachea midline. No JVD. CARDIOVASCULAR: Regular rate and rhythm without murmurs, rubs, or gallops. Peripheral pulses 2+ including 2+ posterior tibial pulses bilaterally. Capillary refill < 2 seconds. RESPIRATORY: Breath sounds clear to auscultation and equal bilaterally, without wheezes, rales, or rhonchi. No accessory muscle use. GASTROINTESTINAL: Abdomen soft, nontender, nondistended, normal BS. MUSCULOSKELETAL: No lower extremity edema. Normal range of motion of upper extremities and left leg. Not moving right leg secondary to pain. Moves all toes well. BACK: Nontender without obvious deformity. Laboratory Laboratory Tests Test 06/20/17 15:02 06/21/17 03:40 White Blood Count 8.0 12.2 Red Blood Count 4.95 4.38 Hemoglobin 14.3 12.5 Hematocrit 42.2 37.5 Mean Corpuscular Volume 85.2 85.5 Mean Corpuscular Hemoglobin 28.9 28.6 Mean Corpuscular Hemoglobin Concent 33.9 33.5 Red Cell Distribution Width 13.2 12.8 Platelet Count 210 197 Mean Platelet Volume 9.5 8.3 Neutrophils (%) (Auto) 70.3 89.0 Lymphocytes (%) (Auto) 20.5 7.5 Monocytes (%) (Auto) 5.8 3.2 Eosinophils (%) (Auto) 2.8 0.0 Basophils (%) (Auto) 0.6 0.3 Neutrophils # (Auto) 5.6 10.9 Lymphocytes # (Auto) 1.6 0.9 Monocytes # (Auto) 0.5 0.4 Eosinophils # (Auto) 0.2 0.0 Basophils # (Auto) 0.0 0.0 CBC Comment DIFF FINAL DIFF FINAL Differential Comment Prothrombin Time 10.6 Prothromb Time International Ratio 1.0 Blood Urea Nitrogen 15 Creatinine 0.87 Random Glucose 131 Calcium Level 8.8 Sodium Level 140 Potassium Level 3.9 Chloride Level 106 Carbon Dioxide Level 25.6 Anion Gap 8 Estimat Glomerular Filtration Rate 68 Result Diagram: 06/21/17 0340 06/20/17 1502 Imaging Last 72 hours Impressions Knee X-Ray 06/20/17 0000 Signed Impressions: Service Date/Time: Tuesday, June 20, 2017 12:45 - CONCLUSION: Very comminuted and considerably displaced/ fracture of the patella. Rosales Lemus MD Hand X-Ray 06/20/17 0000 Signed Impressions: Service Date/Time: Tuesday, June 20, 2017 12:38 - CONCLUSION: Acute, slightly displaced oblique fracture proximally of the fourth metacarpal, probably [id number]. Rosales Lemus MD Caprini VTE Risk Assessment Caprini VTE Risk Assessment: No/Low Risk (score <= 1) Caprini Risk Assessment Model Point Value = 1 Point Value = 2 Point Value = 3 Point Value = 5 Age 41-60 Minor surgery BMI > 25 kg/m2 Swollen legs Varicose veins or History of unexplained or recurrent spontaneous Oral contraceptives or hormone replacement Sepsis (< 1 month) Serious lung disease, including pneumonia (< 1 month) Abnormal pulmonary function Acute myocardial infarction Congestive heart failure (< 1 month) History of inflammatory bowel disease Medical patient at bed rest Age 61-74 Arthroscopic surgery Major open surgery (> 45 min) Laparoscopic surgery (> 45 min) Malignancy Confined to bed (> 72 hours) Immobilizing plaster cast Central venous access Age >= 75 History of VTE Family history of VTE Factor V Leiden Prothrombin [id number] Lupus anticoagulant Anticardiolipin antibodies Elevated serum homocysteine Heparin-induced thrombocytopenia Other congenital or acquired thrombophilia Stroke (< 1 month) Elective arthroplasty Hip, pelvis, or leg fracture Acute spinal cord injury (< 1 month) Prophylaxis Regimen Total Risk Factor Score Risk Level Prophylaxis Regimen 0-1 Low Early ambulation 2 Moderate Order ONE of the following: *Sequential Compression Device (SCD) *Heparin 5000 units SQ BID 3-4 Higher Order ONE of the following medications: *Heparin 5000 units SQ TID *Enoxaparin/Lovenox 40 mg SQ daily (WT < 150 kg, CrCl > 30 mL/min) *Enoxaparin/Lovenox 30 mg SQ daily (WT < 150 kg, CrCl > 10-29 mL/min) *Enoxaparin/Lovenox 30 mg SQ BID (WT < 150 kg, CrCl > 30 mL/min) AND/OR *Sequential Compression Device (SCD) 5 or more Highest Order ONE of the following medications: *Heparin 5000 units SQ TID (Preferred with Epidurals) *Enoxaparin/Lovenox 40 mg SQ daily (WT < 150 kg, CrCl > 30 mL/min) *Enoxaparin/Lovenox 30 mg SQ daily (WT < 150 kg, CrCl > 10-29 mL/min) *Enoxaparin/Lovenox 30 mg SQ BID (WT < 150 kg, CrCl > 30 mL/min) AND *Sequential Compression Device (SCD) Assessment and Plan Assessment and Plan 52 year old female being admitted with a very comminuted and displaced right patellar fracture following a mechanical fall. Orthopedic surgery and surgery was done last night Problem List: (1) Patellar fracture ICD Codes: S82.009A - Unspecified fracture of unspecified patella, initial encounter for closed fracture Status: Acute Plan: - X-ray of her right knee shows very comminuted and considerably displaced/ fracture of the patella - Orthopedic surgery consulted, Dr. Parker did her surgery - Morphine as needed for pain - Will need physical therapy will have lovenox started when Ortho wishes and at home (2) Fracture of fourth metacarpal bone ICD Codes: S62.308A - Unspecified fracture of other metacarpal bone, initial encounter for closed fracture Status: Acute Plan: - X-ray of left hand showing an acute, slightly displaced oblique fracture approximately of the fourth metacarpal - To be splinted in the ED - hand surgery saw her, nonoperative management (3) Nutrition, metabolism, and development symptoms ICD Codes: R63.8 - Other symptoms and signs concerning food and fluid intake Plan: Fluids: NS at maintenance rate, can heplock when eating Electrolytes: WNL, continue to monitor Nutrition:regular diet DVT ppx: b/l SCDs, held chemical anticoagulation in anticipation of orthopedic surgery Problem Qualifiers (1) Patellar fracture: Qualified Codes: S82.041A - Displaced comminuted fracture of right patella, initial encounter for closed fracture (2) Fracture of fourth metacarpal bone: Qualified Codes: S62.315A - Displaced fracture of base of fourth metacarpal bone, left hand, initial encounter for closed fracture Janet Melendez MD Jun 21, 2017 08:42
[2017-06-21] MEDS ORDERED: MAGNESIUM HYDROXIDE SUSP 30 ML CUP PO PRN ×2 (09:00)
--- NOTE | 2017-06-21 11:21 | EKG ---
Date Performed: 06/20/2017 Time Performed: 17:00:53 PTAGE: 52 years EKG: Sinus rhythm Nonspecific ST-T wave changes NO PREVIOUS TRACING DOCTOR: Gonzalo Liu Interpretating Date/Time 06/21/2017 11:20:46
--- NOTE | 2017-06-21 15:42 | PD.ORT.PN ---
Subjective Post Op Day #: 1 Subjective Remarks Patient OOB in chair in NAD. Patient reports minimal pain and states she has been ambulatory with her walker this morning. Family at bedside. Objective Vitals Vital Signs Date Time Temp Pulse Resp B/P (MAP) Pulse Ox O2 Delivery O2 Flow Rate FiO2 06/21/17 12:06 94 21 06/21/17 12:00 97.6 72 18 118/65 (82) 98 06/21/17 08:00 96.6 70 17 118/68 (85) 97 06/21/17 03:25 96.5 65 16 99/51 (67) 95 06/20/17 23:45 97.3 74 16 106/58 (74) 93 06/20/17 20:01 98.2 78 16 136/62 (86) 95 06/20/17 19:45 88 16 138/71 (93) 99 Nasal Cannula 2 06/20/17 19:30 83 16 140/65 (90) 97 Nasal Cannula 2 06/20/17 19:11 98.3 85 10 135/65 (88) 97 Nasal Cannula 2 06/20/17 16:26 06/20/17 16:00 97.1 68 18 157/79 (105) 97 I/O 06/20/17 06/20/17 06/20/17 06/21/17 06/21/17 06/21/17 07:00 15:00 23:00 07:00 15:00 23:00 Intake Total 940 ml 680 ml Output Total 1100 ml Balance -160 ml 680 ml Intake Oral 240 ml 480 ml IV Total 700 ml 200 ml Output Estimated Blood Loss 100 ml Other 1000 ml # Voids 0 2 # Bowel Movements 0 0 Result Diagram: 06/21/17 0340 06/20/17 1502 Procedures Left knee open reduction and internal fixation of patellar fracture Objective Remarks Dressing is C/D/I. EHL/TA/G intact. Calf is soft and nontender. 2+ pedal pulse. + SILT. Assessment & Plan Ortho Post Op Day #: 1 Problem List: Assessment and Plan POD #1: Left knee open reduction and internal fixation of patellar fracture 1. 50% WB on LLE with knee immobilizer on 2. No ROM of the LLE 3. Ice to the left knee PRN 4. Knee immobilizer on at all times 5. Stable per ortho for discharge once medically cleared 6. Lovenox for DVT prophylaxis 7. F/U in the office with Dr. Parker or DION Holm Daniel Scott ARNP Jun 21, 2017 15:42
[2017-06-21] MEDS: ENOXAPARIN SODIUM 40 MG/0.4 ML SYRINGE SQ SCH ×2 (17:53)
[2017-06-22 03:03] VITALS: BP 124/59; PULSE 82; RESP 17; TEMP 97.6; O2SAT 98
[2017-06-22 08:00] VITALS: BP 122/64; PULSE 81; RESP 18; TEMP 99.8; O2SAT 96
[2017-06-22] MEDS: MULTIVITAMINS/MINERALS THERAPEUTIC TAB PO SCH ×2 (08:23)
[2017-06-22] MEDS: DOCUSATE SODIUM 50 MG/SENNA 8.6 MG TAB PO SCH ×2 (08:23)
[2017-06-22] MEDS: SODIUM CHLORIDE 0.9% FLUSH 5 ML FLUSH IVF SCH ×2 (08:29)
--- NOTE | 2017-06-22 09:14 | HHI.FF ---
Face to Face Verification Diagnosis: (1) Patellar fracture Physical Therapy Order: Evaluate and Treat Home Health Nursing Order: Medical education I have seen patient Elida King on 06/22/17. My clinical findings support the need for the requested home health care services because: High risk of falls I certify that my clinical findings support that this patient is homebound because: Unsteady gait/balance Wendy Wayne MD, R1 Jun 22, 2017 09:14
[2017-06-22] MEDS ORDERED: ROLLER WALKER1 MI1 ×2 (09:44)
[2017-06-22] MEDS: DEXT 5%-NACL 0.45% 1000 ML INJ 1,000 ML IV SCH ×2 (10:50)
[2017-06-22 12:00] VITALS: BP 107/59; PULSE 74; RESP 20; TEMP 98.2; O2SAT 96
--- NOTE | 2017-06-22 12:12 | HHI.FPPN ---
Subjective Remarks Patient seen and examined at bedside. Pt stated she is doing well and was able to work with PT learning how to use the walker for ambulation. No other complaints. Objective Vitals Vital Signs Date Time Temp Pulse Resp B/P (MAP) Pulse Ox O2 Delivery O2 Flow Rate FiO2 06/22/17 08:00 99.8 81 18 122/64 (83) 96 06/22/17 07:35 21 06/22/17 03:03 97.6 82 17 124/59 (80) 98 06/21/17 23:11 96.9 79 18 112/58 (76) 93 06/21/17 20:15 21 06/21/17 19:37 97.1 75 18 112/58 (76) 92 06/21/17 16:00 96.5 66 18 119/60 (79) 94 I/O 06/21/17 06/21/17 06/21/17 06/22/17 06/22/17 06/22/17 07:00 15:00 23:00 07:00 15:00 23:00 Intake Total 680 ml 360 ml 480 ml Balance 680 ml 360 ml 480 ml Intake Oral 480 ml 360 ml 480 ml IV Total 200 ml # Voids 2 5 2 1 # Bowel Movements 0 0 0 Physical Exam GENERAL: Well nourished, well-developed, in no acute distress. NEURO: Alert. Normal speech. quality assurance calibrator grossly intact. SKIN: Warm and dry. No rashes, bruising, or erythema. HEAD: Normocephalic. Atraumatic. EYES: PERRL. EOMI. No scleral icterus. No injection or drainage. ENT: No nasal drainage. Moist mucous membranes. No oral ulcers or lesions. NECK: Supple, trachea midline. No JVD. CARDIOVASCULAR: Normal S1 and S2. Regular rate and rhythm without murmurs, rubs , or gallops. Capillary refill < 2 seconds. RESPIRATORY: Breath sounds clear to auscultation and equal bilaterally, without wheezes, rales, or rhonchi. No accessory muscle use. GASTROINTESTINAL: Abdomen soft, nontender, nondistended, normal BS. MUSCULOSKELETAL: No lower extremity edema. Normal range of motion of upper extremities and left leg. Not moving right leg secondary to pain. Moves all toes well. Normal sensation. +2 PD pulses BL BACK: Nontender without obvious deformity. Result Diagram: 06/21/17 0340 06/20/17 1502 A/P Assessment and Plan 52 year old female being admitted with a very comminuted and displaced right patellar fracture following a mechanical fall. Pt medically stable. S/p POD#2 Left knee open reduction and internal fixation of patellar fx by Dr. Parker. Problem List: (1) Patellar fracture ICD Codes: S82.009A - Unspecified fracture of unspecified patella, initial encounter for closed fracture Status: Acute Plan: - X-ray of her right knee shows very comminuted and considerably displaced/ fracture of the patella - S/p POD#2 Left knee open reduction and internal fixation of patellar fx by Dr. Parker - Ortho prescribed pain medication and lovenox -Pt to follow as out patient with Dr. Parker - Pt discharged with home physical therapy (2) Fracture of fourth metacarpal bone ICD Codes: S62.308A - Unspecified fracture of other metacarpal bone, initial encounter for closed fracture Status: Acute Plan: - X-ray of left hand showing an acute, slightly displaced oblique fracture approximately of the fourth metacarpal - Splint in place -hand surgery evaluated pt, nonoperative management -Pt advised to f/u outpatient for hand with OT -Pt to follow up with Dr. Johns outpatient in 1 wk (3) Nutrition, metabolism, and development symptoms ICD Codes: R63.8 - Other symptoms and signs concerning food and fluid intake Plan: Fluids: NS at maintenance rate, can heplock when eating Electrolytes: WNL Nutrition:regular diet DVT ppx: b/l SCDs Dispo: Pt medically stable, pt cleared for discharge today by Ortho. Problem Qualifiers (1) Patellar fracture: Qualified Codes: S82.041A - Displaced comminuted fracture of right patella, initial encounter for closed fracture (2) Fracture of fourth metacarpal bone: Qualified Codes: S62.315A - Displaced fracture of base of fourth metacarpal bone, left hand, initial encounter for closed fracture Wendy Wayne MD, R1 Jun 22, 2017 12:12
--- NOTE | 2017-06-22 12:23 | PD.ORT.PN ---
Subjective Post Op Day #: 2 Subjective Remarks Patient OOB in chair in NAD. Patient reports minimal pain and states she has been ambulatory with her walker this morning. Family at bedside. Patient planning for discharge today. Objective Vitals Vital Signs Date Time Temp Pulse Resp B/P (MAP) Pulse Ox O2 Delivery O2 Flow Rate FiO2 06/22/17 08:00 99.8 81 18 122/64 (83) 96 06/22/17 07:35 21 06/22/17 03:03 97.6 82 17 124/59 (80) 98 06/21/17 23:11 96.9 79 18 112/58 (76) 93 06/21/17 20:15 21 06/21/17 19:37 97.1 75 18 112/58 (76) 92 06/21/17 16:00 96.5 66 18 119/60 (79) 94 I/O 06/21/17 06/21/17 06/21/17 06/22/17 06/22/17 06/22/17 07:00 15:00 23:00 07:00 15:00 23:00 Intake Total 680 ml 360 ml 480 ml Balance 680 ml 360 ml 480 ml Intake Oral 480 ml 360 ml 480 ml IV Total 200 ml # Voids 2 5 2 1 # Bowel Movements 0 0 0 Result Diagram: 06/21/17 0340 06/20/17 1502 Procedures Left knee open reduction and internal fixation of patellar fracture Objective Remarks Dressing has been changed and is C/D/I. EHL/TA/G intact. Calf is soft and nontender. 2+ pedal pulse. + SILT. Assessment & Plan Ortho Post Op Day #: 2 Problem List: Assessment and Plan POD #2: Left knee open reduction and internal fixation of patellar fracture 1. 50% WB on LLE with knee immobilizer on 2. No ROM of the LLE 3. Ice to the left knee PRN 4. Knee immobilizer on at all times 5. Stable per ortho for discharge once medically cleared 6. Lovenox for DVT prophylaxis 7. F/U in the office with Dr. Parker or DION Holm Daniel Scott ARNP Jun 22, 2017 12:23
[2017-06-22] MEDS: ENOXAPARIN SODIUM 40 MG/0.4 ML SYRINGE SQ SCH ×2 (16:35)
--- NOTE | 2017-06-23 11:49 | HHI.DS ---
Discharge Summary Admission Date Jun 20, 2017 Discharge Date: Jun 22, 2017 Admitting Diagnosis comminuted patellar fracture, metacarpal fracture (1) Patellar fracture Diagnosis: Principal Plan: - X-ray of her right knee shows very comminuted and considerably displaced/ fracture of the patella - S/p POD#2 Left knee open reduction and internal fixation of patellar fx by Dr. Parker - Ortho prescribed pain medication and lovenox -Pt to follow as out patient with Dr. Parker - Pt discharged with home physical therapy ICD Codes: S82.009A - Unspecified fracture of unspecified patella, initial encounter for closed fracture Status: Acute (2) Fracture of fourth metacarpal bone Diagnosis: Principal Plan: - X-ray of left hand showing an acute, slightly displaced oblique fracture approximately of the fourth metacarpal - Splint in place -hand surgery evaluated pt, nonoperative management -Pt advised to f/u outpatient for hand with OT -Pt to follow up with Dr. Johns outpatient in 1 wk ICD Codes: S62.308A - Unspecified fracture of other metacarpal bone, initial encounter for closed fracture Status: Acute Consultants Dr. Parker and Dr. Johns for ortho and hand surgery, respectively. Procedures Left knee ORIF, 06/20 Brief History Ms King is a 52 year old female who presented to the ED after she tripped on concrete fell. She states she was walking on the sidewalk with her when she tripped on uneven concrete and fell. She fell forward landing on concrete on her right knee and left hand. She denies landing or injury any other body part. Denies LOC. She currently states her pain is at a good level. Prior to receiving this her pain was at a 10/10. She does report a history of falls about once every 5 years or so. She denies issues with her gait or balance issues. It seems these are mostly due to clumsiness. She does have a history of amblyopia and had surgery on her eyes as a child and she states she had Lasix surgery on her left eye some years ago but she denies issues with her vision that may contribute to her falls. She denies any history of seizures. Denies any focal neuro deficit. Denies feeling any weakness, numbness, or tingling of any extremity prior to the fall. Denies headaches, visual changes, blurry vision, CP, SOB, cough, f/c. She did well with surgery and needs no operation for her hand. We discussed lovenox and PT for her walking and hand as she will need these at home. She is interested in going home as soon as possible. She has no other complaints today. CBC/BMP: 06/21/17 0340 06/20/17 1502 Significant Findings Laboratory Tests Test 06/20/17 15:02 06/21/17 03:40 Neutrophils (%) (Auto) 70.3 % (16.0-70.0) 89.0 % (16.0-70.0) Random Glucose 131 MG/DL (74-106) Estimat Glomerular Filtration Rate 68 ML/MIN (>89) White Blood Count 12.2 TH/MM3 (4.0-11.0) Lymphocytes (%) (Auto) 7.5 % (9.0-44.0) Neutrophils # (Auto) 10.9 TH/MM3 (1.8-7.7) Lymphocytes # (Auto) 0.9 TH/MM3 (1.0-4.8) Imaging Last Impressions Knee X-Ray 06/20/17 0000 Signed Impressions: Service Date/Time: Tuesday, June 20, 2017 18:34 - CONCLUSION: Operative fixation comminuted patellar fracture. Guzman Reid MD Hand X-Ray 06/20/17 0000 Signed Impressions: Service Date/Time: Tuesday, June 20, 2017 12:38 - CONCLUSION: Acute, slightly displaced oblique fracture proximally of the fourth metacarpal, probably [id number]. Rosales Lemus MD PE at Discharge GENERAL: Well nourished, well-developed, in no acute distress. NEURO: Alert. Normal speech. adapted physical education specialist grossly intact. SKIN: Warm and dry. No rashes, bruising, or erythema. HEAD: Normocephalic. Atraumatic. EYES: PERRL. EOMI. No scleral icterus. No injection or drainage. ENT: No nasal drainage. Moist mucous membranes. No oral ulcers or lesions. NECK: Supple, trachea midline. No JVD. CARDIOVASCULAR: Normal S1 and S2. Regular rate and rhythm without murmurs, rubs , or gallops. Capillary refill < 2 seconds. RESPIRATORY: Breath sounds clear to auscultation and equal bilaterally, without wheezes, rales, or rhonchi. No accessory muscle use. GASTROINTESTINAL: Abdomen soft, nontender, nondistended, normal BS. MUSCULOSKELETAL: No lower extremity edema. Normal range of motion of upper extremities and left leg. Not moving right leg secondary to pain. Moves all toes well. Normal sensation. +2 PD pulses BL BACK: Nontender without obvious deformity. Hospital Course Mrs. King presented to the ED after sustaining a mechanical fall. On XRAY she was found to have a Right patellar and proximal oblique fx of the 4th metacarpal of the left hand. Ortho and hand surgery consults were put in place. Pt underwent ORIF by Dr. Parker for Right patellar fx. Pt was also evaluated by Dr. Johns for fx of the 4th metacarpal of the left hand which was deemed not to necessitate operative management. Left arm was placed in a splint. .During her hospital course she worked with physical therapy and remained in medically stable condition otherwise. Patient was discharge with pain medications and referral for home physical therapy, script for walker with forearm platform. Pt advised to f/u with ortho and hand license and permit specialist as out patient. Pt Condition on Discharge: Stable Discharge Disposition: Disch w/ Home Health Serv Discharge Instructions DIET: Follow Instructions for: As Tolerated, No Restrictions Activities you can perform: Partial Weight Bearing Follow up Referrals: Hand Surgery - 1 Week with Shital Johns MD Orthopedics with Emerson Parker MD PCP Follow-up - 2 Weeks [facility]/ with NURSE [facility] [phone] New Medications: Enoxaparin Inj (Enoxaparin Inj) 40 Mg/0.4 Ml Syr 40 MG SQ DAILY for Blood Clot Prevention for 20 Days, #20 SYRINGE 0 Refills Misc. Devices (Roller Walker) 1 Mis Mis EA .ROUTE NOW, #1 Oxycodone (Oxycodone) 5 Mg Cap 1-2 TAB PO Q4H PRN for PAIN, #60 CAP 0 Refills Continued Medications: Levothyroxine (Levothyroxine) 25 Mcg Tab 100 MCG PO DAILY for Thyroid, TAB 0 Refills Lovastatin (Lovastatin) 20 Mg Tab 20 MG PO DAILY for Cholesterol Management, TAB 0 Refills Sertraline (Sertraline) 50 Mg Tab 50 MG PO DAILY, TAB 0 Refills Wendy Wayne MD, R1 Jun 23, 2017 11:49
== END 2017-06-22 17:01 | disposition home health service (06) | DRG 517 ==
LOC: NEPC 11:43 → NEDA 14:01 → INTOOBSV 14:01 → OBSVTOIN 14:01 → N06A 16:00 → INTOOBSV 06-22 10:12 → OBSVTOIN 06-22 10:12
PROVIDERS: ADMIT Family Medicine; ATTEND Family Medicine
PROC: 2W3FX1Z Immobilization of Left Hand using Splint (ICD-10-PCS; 2017-06-20)
PROC: 0QSD04Z Reposition Right Patella with Internal Fixation Device, Open Approach (ICD-10-PCS; principal; 2017-06-20 17:14)
DX: S82.041A Displaced comminuted fracture of right patella, initial encounter for closed fracture (principal); E03.9 Hypothyroidism, unspecified; S62.315A Displaced fracture of base of fourth metacarpal bone, left hand, initial encounter for closed fracture; E78.5 Hyperlipidemia, unspecified; N95.9 Unspecified menopausal and perimenopausal disorder; W10.1XXA Fall (on)(from) sidewalk curb, initial encounter; Z91.81 History of falling; Y92.480 Sidewalk as the place of occurrence of the external cause; Y93.01 Activity, walking, marching and hiking
CPT/HCPCS: 73130; 73560; 73564; 76000; 80048; 85025; 85610; 93005; 94150; 96374; J0690; J1580; J1650; J1885; J2270; J3370; J7030; L1830